=== PATIENT | male | born 2000 | race African-American/Black ===

== ENCOUNTER → 2019-12-25 | Emergency (ER) | payer BC, OTHER ==
[~2019-12-25] VITALS: Ht 180.3 cm; Wt 77.1 kg
[~2019-12-25] MED LIST: IBUPROFEN 600600 M1 PO
[2019-12-25 12:50] VITALS: BP 94/58
== END ==
LOC: ER 10:18
DX: S00.83XA Contusion of other part of head, initial encounter (principal); Z88.0 Allergy status to penicillin; V49.59XA Passenger injured in collision with other motor vehicles in traffic accident, initial encounter; Y92.89 Other specified places as the place of occurrence of the external cause; Y93.89 Activity, other specified; Y99.8 Other external cause status

== ENCOUNTER 2019-12-26 21:48 | Emergency (ER) | payer BC, OTHER ==
[~2019-12-26] VITALS: Ht 180.3 cm; Wt 77.1 kg
[2019-12-26 21:49] VITALS: BP 105/50
== END 2019-12-26 22:57 | disposition home or self-care (01) ==
LOC: ER 21:48
DX: S00.83XA Contusion of other part of head, initial encounter (principal); Z88.0 Allergy status to penicillin; V89.0XXA Person injured in unspecified motor-vehicle accident, nontraffic, initial encounter; Y93.89 Activity, other specified; Y92.89 Other specified places as the place of occurrence of the external cause; Y99.8 Other external cause status